=== PATIENT | female | born 1990 | race Caucasian/White ===

== ENCOUNTER → 2022-03-08 09:26 | Outpatient (BNVA) | payer MEDICAID, SELFPAY | PROVIDERS: Family Provider Family Medicine; PCP Family Medicine; Visit Provider Internal Medicine | DX: M25.50 Pain in unspecified joint (principal); M54.2 Cervicalgia; R93.7 Abnormal findings on diagnostic imaging of other parts of musculoskeletal system; Z11.59 Encounter for screening for other viral diseases; Z11.1 Encounter for screening for respiratory tuberculosis | CPT/HCPCS: 36415; 72072; 72100; 73120; 80053; 85025; 86140; 86200; 86431; 86480; 86704; 86803; 86812; 87340; 99203; 99204 ==

== ENCOUNTER → 2022-06-21 10:49 | Outpatient (BNVA) | payer MEDICAID, SELFPAY | PROVIDERS: Family Provider Family Medicine; Visit Provider Internal Medicine | DX: M25.50 Pain in unspecified joint (principal); M54.2 Cervicalgia; K58.9 Irritable bowel syndrome, unspecified | CPT/HCPCS: 84439; 84443; 84480; 99214 ==

== ENCOUNTER 2022-08-01 12:02 | Outpatient (CLI) | payer MEDICAID, SELFPAY ==
--- NOTE | 2022-08-01 11:45 | MR_ITS ---
WS: [id number] MRI CERVICAL SPINE NONCONTRAST HISTORY: M54.2 - Cervicalgia COMPARISON: None available. Technique: Multiplanar, multisequence noncontrast imaging of the cervical spine. Moderate increase in the cervical lordosis. Signal within the cervical cord is normal. Visualized posterior fossa is unremarkable. Craniocervical junction, C1 and C2 relationship, odontoid process and soft tissues are normal. C2-C3: Normal. C3-C4: Normal. C4-C5: Normal. C5-C6: Normal. C6-C7: Normal. C7-T1: Normal. Paraspinal soft tissue are normal. MR/MR cervical spin wo con* [id number] IMPRESSION: 1. Moderate increase in the cervical lordosis. 2. No significant cervical stenosis. Normal cord signal.
== END 2022-08-01 12:03 | disposition home or self-care (01) ==
LOC: RAD 12:05
PROVIDERS: Family Provider Family Medicine; Visit Provider Internal Medicine
DX: M54.2 Cervicalgia (principal)
CPT/HCPCS: 72141

== ENCOUNTER → 2022-10-03 12:49 | Outpatient (BNVA) | payer MEDICAID, SELFPAY | PROVIDERS: Family Provider Family Medicine; Visit Provider Internal Medicine | DX: M25.50 Pain in unspecified joint (principal); M54.2 Cervicalgia | CPT/HCPCS: 36415; 80053; 85025; 85651; 86140; 99213 ==

== ENCOUNTER → 2022-10-25 09:17 | Outpatient (BNVA) | payer MEDICAID, SELFPAY | PROVIDERS: Family Provider Family Medicine; Visit Provider Anesthesiology Pain Medicine | DX: M54.2 Cervicalgia (principal) | CPT/HCPCS: 99204 ==

== ENCOUNTER 2023-01-15 01:01 | Emergency (ER) | payer MEDICAID, SELFPAY ==
[2023-01-15 01:07] VITALS: BMI 20.5
[2023-01-15 01:09] VITALS: BP 112/60; PULSE 53; RESP 16; TEMP 37.2; O2SAT 98
--- NOTE | 2023-01-15 01:15 | W.ED.EAR ---
Documented by User: RAMANDEEP Perez 01/15/23 02:28 HPI - Ear Problem General: Chief complaint: Ear Stated complaint: Bug In Ear Time Seen by Provider: 01/15/23 01:08 History of Present Illness: 32-year-old female comes in today for complaints of insect in her right ear canal. Patient reports about an hour ago she felt an insect going to her ear. Since then she has had discomfort to the right ear and a crawling sensation in the ear canal. Patient appears nontoxic. Patient appears in mild pain. Associated symptoms: Denies fever(s) Review of Systems Const: Denies: fever(s) ENMT: Reports: other (Bug in ear canal) Card: Denies: chest pain Resp: Denies: dyspnea GI: Denies: vomiting Skin/Breast: Denies: rash PFSH ED PFSH: Medical History IBS (irritable bowel syndrome) Family History Other Arthritis CAD (coronary artery disease) Chronic kidney disease (CKD) Diabetes Denies family history of Dementia Cancer Stroke Social History Smoking and tobacco status: never smoked Alcohol intake: never Substance/Drug Use: never Lives independently: Yes Household members: children and other Details: father Marital status: Legally Female Reproductive History: Date of last menstrual period: 12/17/22 Physical Exam Const: COMMON NORMALS: patient oriented x3 HENMT: COMMON NORMALS: normocephalic HEAD & SCALP: normocephalic EXTERNAL AUDITORY CANAL: other (Thorax of bug) THROAT: posterior oropharynx normal Neck/C-Spine: COMMON NORMALS: full ROM Resp: COMMON NORMALS: normal respiratory effort Cardio: COMMON NORMALS: regular rate and regular rhythm RATE: regular rate RHYTHM: regular rhythm Extremity: COMMON NORMALS: normal to inspection Neuro: COMMON NORMALS: patient oriented x3 Skin: COMMON NORMALS: turgor normal GENERAL SKIN EXAM: turgor normal Procedures FB Removal Ear Location: ear canal (R) Foreign Body Suspected: organic matter (Insect) TM intact pre-procedure: yes If Insect Suspected: ear canal instilled with Lidocaine Foreign Body Removed: yes Foreign Body Removal Technique: instrumentation Tympanic Membrane Intact Post Procedure: Yes Patient Tolerated Procedure: well Complications: pain Additional Comments: Dr. Montenegro used a fiberoptic camera and forceps in order to remove the remainder of the insect after irrigation and suction failed. Course Vital Signs: Vital signs: Vital Signs Temperature 98.9 F 01/15/23 01:09 Pulse Rate 55 L 01/15/23 02:40 Respiratory Rate 14 01/15/23 02:40 Blood Pressure 110/65 01/15/23 02:40 Pulse Oximetry 98 01/15/23 02:40 Oxygen Delivery Me thod Room Air 01/15/23 01:09 [facility] - Ear Medical Decision Making Patient comes in today for a insect to the right ear canal. Patient reported noticing the movement of the insect in her ear about 1 hour ago. On exam we note a mejia like insect in the ear canal. Differential diagnosis includes foreign body ear canal, perforation foreign body, otitis externa. Dr Montenegrowas able to remove the insect with use of forceps and fiberoptic camera after a failed attempt with irrigation and instrumentation. Tympanic membrane remained intact after removal of insect. Patient tolerated well. Patient will be covered for postprocedure infection of Cortisporin otic drops. Patient reported understanding of care plan and need for follow-up or return to the ER. Discharge Plan Discharge Patient Disposition: Home Clinical Impression: Foreign body in right ear Condition: Stable Prescriptions: No Action Rinvoq 15 mg tablet extended release 24 hr 15 mg PO DAILY Qty: 30 5RF tizanidine 4 mg tablet 4 mg PO BID PRN (Reason: muscle spasticity) Qty: 60 0RF duloxetine [Cymbalta] 30 mg capsule,delayed release(DR/EC) 30 mg PO DAILY Qty: 30 0RF Discharge Orders: Discharge ED (Routine); Ordered 01/15/23 Ordered By: Cj Reyes Discharge Diet: Usual diet Discharge Activity: Increase activity as tolerated Patient Instructions: Ear Foreign Body (ED) Activity Restrictions/Additional Instructions: Use antibiotic eardrops to the right ear 2 drops to the ear 4 times a day for the next 5 days. Follow-up with primary care as needed. Return to ED for new concerns. Coding Level of Care Code ED Glass Cut Off Tender for Chg Fwd Documented by User: Rush Montenegro MD 01/25/23 09:53 HPI - Ear Problem General: Chief complaint: Ear Stated complaint: Bug In Ear Time Seen by Provider: 01/15/23 01:08 [facility] ED PFSH: Medical History IBS (irritable bowel syndrome) Family History Other Arthritis CAD (coronary artery disease) Chronic kidney disease (CKD) Diabetes Denies family history of Dementia Cancer Stroke Social History Smoking and tobacco status: never smoked Alcohol intake: never Substance/Drug Use: never Lives independently: Yes Household members: children and other Details: father Marital status: Legally Course Vital Signs: Vital signs: Vital Signs Temperature 98.9 F 01/15/23 01:09 Pulse Rate 55 L 01/15/23 02:40 Respiratory Rate 14 01/15/23 02:40 Blood Pressure 110/65 01/15/23 02:40 Pulse Oximetry 98 01/15/23 02:40 Oxygen Delivery Me thod Room Air 01/15/23 01:09 [facility] - Ear Medical Decision Making Patient comes in today for a insect to the right ear canal. Patient reported noticing the movement of the insect in her ear about 1 hour ago. On exam we note a mejia like insect in the ear canal. Differential diagnosis includes foreign body ear canal, perforation foreign body, otitis externa. Dr Montenegrowatrent able to remove the insect with use of forceps and fiberoptic camera after a failed attempt with irrigation and instrumentation. Tympanic membrane remained intact after removal of insect. Patient tolerated well. Patient will be covered for postprocedure infection of Cortisporin otic drops. Patient reported understanding of care plan and need for follow-up or return to the ER. I assisted RAMANDEEP Leal with patient care. I reviewed documentation Rush Montenegro MD Emergency Medicine Discharge Plan Discharge Patient Disposition: Home Clinical Impression: Foreign body in right ear Condition: Stable Prescriptions: No Action Rinvoq 15 mg tablet extended release 24 hr 15 mg PO DAILY Qty: 30 5RF tizanidine 4 mg tablet 4 mg PO BID PRN (Reason: muscle spasticity) Qty: 60 0RF duloxetine [Cymbalta] 30 mg capsule,delayed release(DR/EC) 30 mg PO DAILY Qty: 30 0RF Discharge Orders: Discharge ED (Routine); Ordered 01/15/23 Ordered By: Cj Reyes Discharge Diet: Usual diet Discharge Activity: Increase activity as tolerated Patient Instructions: Ear Foreign Body (ED) Activity Restrictions/Additional Instructions: Use antibiotic eardrops to the right ear 2 drops to the ear 4 times a day for the next 5 days. Follow-up with primary care as needed. Return to ED for new concerns. Coding Level of Care Code ED Glass Cut Off Tender for Latoya Gallegos
[2023-01-15] MEDS: carbamide peroxide Otic 15 mL Btl 5 DROP EAR-RIGHT (01:37)
[2023-01-15] MEDS: neomycin-poly-hydrocort Otic Susp 10 mL Btl 4 DROP EAR-RIGHT (02:34)
[2023-01-15 02:40] VITALS: BP 110/65; PULSE 55; RESP 14; O2SAT 98
--- NOTE | 2023-01-18 13:39 | DCPLANNER ---
automotive sales manager called patient due to no primary care physician - patient declines at this time.
== END 2023-01-15 02:42 | disposition home or self-care (01) ==
PROVIDERS: Emergency Provider Nurse Practitioner Family
DX: T16.1XXA Foreign body in right ear, initial encounter (principal); X58.XXXA Exposure to other specified factors, initial encounter
CPT/HCPCS: 69200; 99283

== ENCOUNTER → 2023-01-21 13:46 | Outpatient (BNVA) | payer MEDICAID, SELFPAY | PROVIDERS: Visit Provider Internal Medicine | DX: M25.50 Pain in unspecified joint (principal); M54.2 Cervicalgia | CPT/HCPCS: 36415; 80053; 83735; 84443; 85025; 99213 ==

== ENCOUNTER → 2023-02-05 11:17 | Outpatient (BNVA) | payer MEDICAID, SELFPAY | PROVIDERS: Visit Provider Anesthesiology Pain Medicine | DX: M54.16 Radiculopathy, lumbar region (principal); M54.2 Cervicalgia | CPT/HCPCS: 99214 ==

== ENCOUNTER → 2023-04-02 08:40 | Outpatient (BNVA) | payer MEDICAID, SELFPAY | PROVIDERS: Visit Provider Anesthesiology Pain Medicine | DX: M79.18 Myalgia, other site (principal); M54.2 Cervicalgia; M06.9 Rheumatoid arthritis, unspecified; Z79.899 Other long term (current) drug therapy | CPT/HCPCS: 20553; 36415; 80053; 83735; 85025; 85651; 86140; 99213; 99214; J1030; J3490 ==

== ENCOUNTER 2023-04-26 13:01 | Outpatient (CLI) | payer MEDICAID, SELFPAY ==
[2023-04-26 13:53] LABS: Ferritin 77 ng/mL (15-150)
[2023-04-30 20:41] LABS: Quantiferon Nil 0.02 IU/mL; Quantiferon Plus TB2 0.02 IU/mL; Quantiferon TB Gold NEGATIVE (NEGATIVE)
== END 2023-04-26 13:02 | disposition home or self-care (01) ==
PROVIDERS: Visit Provider Internal Medicine
DX: M06.9 Rheumatoid arthritis, unspecified (principal); M25.50 Pain in unspecified joint; Z79.899 Other long term (current) drug therapy
CPT/HCPCS: 36415; 82728; 86480

== ENCOUNTER → 2023-05-30 09:03 | Outpatient (BNVA) | payer MEDICAID, SELFPAY | PROVIDERS: Visit Provider Anesthesiology Pain Medicine | DX: M54.2 Cervicalgia | CPT/HCPCS: 99214 ==

== ENCOUNTER → 2023-07-17 13:51 | Outpatient (BNVA) | payer MEDICAID, SELFPAY | PROVIDERS: Visit Provider Internal Medicine | DX: M06.9 Rheumatoid arthritis, unspecified (principal); M25.50 Pain in unspecified joint; M54.2 Cervicalgia | CPT/HCPCS: 36415; 72100; 73522; 80053; 85025; 85651; 86140; 99214 ==

== ENCOUNTER → 2023-08-29 09:48 | Outpatient (BNVA) | payer MEDICAID, SELFPAY | PROVIDERS: Visit Provider Anesthesiology Pain Medicine | DX: M54.2 Cervicalgia (principal); M54.9 Dorsalgia, unspecified; M41.9 Scoliosis, unspecified | CPT/HCPCS: 99214 ==

== ENCOUNTER → 2023-10-08 10:02 | Outpatient (BNVA) | payer MEDICAID, SELFPAY | PROVIDERS: Visit Provider Anesthesiology Pain Medicine | DX: M54.2 Cervicalgia (principal); M54.9 Dorsalgia, unspecified; G89.29 Other chronic pain | CPT/HCPCS: 99214 ==

== ENCOUNTER → 2024-02-17 13:54 | Outpatient (BNVA) | payer MEDICAID, SELFPAY | PROVIDERS: Visit Provider Internal Medicine Rheumatology | DX: M06.9 Rheumatoid arthritis, unspecified (principal); M08.80 Other juvenile arthritis, unspecified site; K02.9 Dental caries, unspecified; M21.222 Flexion deformity, left elbow; M51.34 Other intervertebral disc degeneration, thoracic region; M50.30 Other cervical disc degeneration, unspecified cervical region; M41.9 Scoliosis, unspecified; Z79.899 Other long term (current) drug therapy; Z71.85 Encounter for immunization safety counseling; F17.210 Nicotine dependence, cigarettes, uncomplicated | CPT/HCPCS: 80076; 82565; 85025; 85651; 86140; 86480; 86704; 86803; 87340; 99215 ==

== ENCOUNTER 2024-03-20 21:03 | Emergency (ER) | payer MEDICAID, SELFPAY ==
[2024-03-20 21:23] VITALS: BP 125/77; PULSE 57; RESP 16; TEMP 36.5; O2SAT 98
--- NOTE | 2024-03-20 22:36 | CTR_ITS ---
PROCEDURE INFORMATION: Exam: CT Head Without Contrast Exam date and time: 03/20/2024 10:41 PM Age: 33 years old Clinical indication: Pain; Headache; Patient HX: C/O migraine; Additional info: Migraine, feels different, face pain TECHNIQUE: Imaging protocol: Computed tomography of the head without contrast. Radiation optimization: All CT scans at this facility use at least one of these dose optimization techniques: automated exposure control; mA and/or kV adjustment per patient size (includes targeted exams where dose is matched to clinical indication); or iterative reconstruction. COMPARISON: MR cervical spin wo con* [id number] 08/01/2022 12:25 PM RADIATION DOSE METRICS: Total DLP (mGy-cm): 884.62 FINDINGS: Brain: Normal. No hemorrhage. Unremarkable white matter. No mass effect. Cerebral ventricles: No ventriculomegaly. Paranasal sinuses: Visualized sinuses are unremarkable. No fluid levels. Mastoid air cells: Visualized mastoid air cells are well aerated. Bones: Unremarkable. No acute fracture. Soft tissues: Unremarkable. CT/CT head wo con* [id number] IMPRESSION: No acute intracranial abnormality.
--- NOTE | 2024-03-20 22:38 | W.ED.HA ---
HPI - Headache General: Chief Complaint: Headache Stated Complaint: Mouth pain Time Seen by Provider: 03/20/24 22:32 Source: patient Mode of arrival: ambulatory Limitations: no limitations History of Present Illness: Patient is a 33-year-old female presenting to the emergency department planing of headache onset yesterday. Patient reports history of tension headaches, states this feels different and is in her face. She states it is in bilateral ears and she is also having dental pain. No visual changes, unilateral numbness, weakness, or tingling, or any other concerning symptoms reported this time. No chest pain or shortness of breath. States that the pain has been constant. No recent trauma. Onset was gradual, location is diffuse. States it is severe. No specific alleviating or exacerbating factors noted at this time. She has not taken anything for her pain. MD elicited complaint: headache Pertinent past history: migraines Onset (ago): day(s) Onset description: gradually Location: diffuse Severity: severe Exacerbating factors: none Relieving factors: nothing Associated symptoms: Deny chest pain, fever(s), lightheadedness, nausea, rash or vomiting Review of Systems General: Reports: 10 or more systems reviewed and unremarkable except in HPI and below Const: Denies: fever(s), chills or fatigue Eyes: Denies: change in vision ENMT: Reports: sinus pain; Denies: throat pain, ear or mastoid pain or nasal discharge Card: Denies: chest pain, palpitations, swelling of feet/ankles or lightheadedness Resp: Denies: dyspnea, productive cough or wheezing GI: Denies: abdominal pain, nausea, vomiting, diarrhea or constipation : Denies: flank pain, difficulty voiding, dysuria or urinary frequency Musc: Denies: neck pain, back pain or joint pain Skin/Breast: Denies: rash Neuro: Reports: headache(s); Denies: numbness in extremities or weakness in extremities PFSH ED PFSH: Medical History Immunization counseling Dental caries Anxiety Depression Chronic migraine Thyroid disease High risk medication use PAULETTE (juvenile idiopathic arthritis) Rheumatoid arthritis IBS (irritable bowel syndrome) Surgical History History of elbow surgery History of cholecystectomy Family History Other Arthritis CAD (coronary artery disease) Chronic kidney disease (CKD) Diabetes Denies family history of Dementia Cancer Stroke Social History Smoking and tobacco/nicotine status: current every day tobacco/nicotine user cigarettes Packs smoked per day: 0.5 Years cigarettes smoked: 10 Alcohol intake: never Substance/Drug Use: never Lives independently: Yes Household members: children and other Details: father Marital status: Legally Physical Exam Const: COMMON NORMALS: no acute distress, patient oriented x3 and no limitations GENERAL APPEARANCE: cooperative, comfortable and well developed ORIENTATION/CONSCIOUSNESS: Yes awake, Yes oriented to person, Yes oriented to place and Yes oriented to time HENMT: COMMON NORMALS: normocephalic, atraumatic, hearing grossly normal bilaterally, external ears normal and EAC's normal HEAD & SCALP: normocephalic and atraumatic FACE & SINUS: normal facial exam EXTERNAL EAR: Yes external ears normal EXTERNAL AUDITORY CANAL: EAC's normal TYMPANIC MEMBRANE: TM abnormal TM laterality: bilateral bulging TEETH & GINGIVA: Yes multiple restorations and Yes poor dentition Eye: COMMON NORMALS: Equal, round and reactive pupils present, EOMs intact bilaterally and conjunctivae normal CONJUNCTIVA: Yes conjunctivae normal PUPIL: Yes Equal, round and reactive pupils present Neck/C-Spine: COMMON NORMALS: full ROM, supple and no JVD Resp: COMMON NORMALS: normal respiratory effort, No retractions, No use of accessory muscles and clear to auscultation bilaterally AUSCULTATION: clear to auscultation bilaterally Cardio: COMMON NORMALS: no JVD, regular rate, regular rhythm, No clicks present (Cardio), No murmurs present (Cardio) and No rub (Cardio) RATE: regular rate RHYTHM: regular rhythm Extremity: COMMON NORMALS: normal to inspection, full ROM and capillary refill normal Neuro: COMMON NORMALS: patient oriented x3, CN's II-XII intact bilaterally, moves all extremities, no focal motor deficits and no sensory deficits noted SENSORIUM/ORIENTATION: Yes oriented to person, Yes oriented to place and Yes oriented to time Psych: COMMON NORMALS: mental status grossly normal and Normal thought process present THOUGHT PROCESS: Normal thought process present Skin: COMMON NORMALS: no rashes or lesions noted GENERAL SKIN EXAM: no rashes or lesions noted Course Vital Signs: Vital signs: Vital Signs Temperature 97.7 F 03/20/24 21:23 Pulse Rate 57 L 03/20/24 21:23 Respiratory Rate 16 03/20/24 21:23 Blood Pressure 125/77 03/20/24 21:23 Pulse Oximetry 98 03/20/24 21:23 MDM - Headache Medical Decision Making Patient presented with 1 day of headache as well as facial pain, stating that this pain felt different from her history of tension type headaches. She does have poor dentition on examination, and it is likely that some dental pain could be contributing to this. Also notes some pressure in her ears, and upon evaluation did find her ears to be bulging, potential fluid buildup. Vitals were normal on arrival and rest of her examination was unremarkable including a normal neurological workup. CT head obtained to rule out any acute abnormalities, this was negative. She does note improvement after receiving a migraine cocktail, and I do believe that her pain related to a combination of tension type headache, potential eustachian tube dysfunction, and potentially some dental pain. She has Flonase at home, and I did instruct her to follow-up with dentist next week for evaluation here. She is on Topamax and does take ibuprofen, she is encouraged to continue taking these and will return with any new or worsening symptoms. Lab Data Radiology Impressions Head CT 03/20/24 22:36 IMPRESSION: No acute intracranial abnormality. All radiology interpretation(s) finalized by discharge Discharge Plan Discharge Patient Disposition: Home Clinical Impression: Headache Qualifiers: Headache type: tension-type Headache chronicity pattern: acute headache Intractability: intractable Qualified Code(s): G44.201 - Tension-type headache, unspecified, intractable Condition: Stable Prescriptions: No Action loperamide 2 mg capsule See Rx Instructions PO .COMPLEX Rx Instructions: 1 capsule po q 3 hrs PROMETHAZINE 12.5 mg PO .COMPLEX Rx Instructions: 12.5 mg TAB PO Q 8HRS OKRA PEPSIN E3 PO OX BILE 500 mg PO topiramate 50 mg tablet 50 mg PO BID 30 Days Qty: 60 0RF tizanidine 4 mg tablet 4 mg PO BID PRN (Reason: muscle spasticity) Qty: 60 0RF IBUPROFEN 600 mg PO PRN Rx Instructions: 1 TAB Q 8 HRS OMEPRAZOLE 40 mg PO DAILY prednisone 20 mg tablet See Rx Instructions PO .COMPLEX PRN (Reason: joint pain flare) Qty: 30 1RF Rx Instructions: take 1 or 2 tab daily for up to 7 days as needed for arthritis flare PO PRN; Xeljanz 5 mg tablet 5 mg PO BID Qty: 60 5RF Discharge Orders: Discharge ED (Routine); Ordered 03/20/24 Ordered By: Cosme Rice Discharge Diet: Usual diet Discharge Activity: Increase activity as tolerated Patient Instructions: Tension Headache (ED) Activity Restrictions/Additional Instructions: Plenty of fluids. Ibuprofen for pain and continue your other medications. Range of motion exercises of your neck as tolerated. Follow-up with dentist as discussed. You may also follow-up with primary care as needed and return with any new or worsening symptoms. Coding Level of Care Code ED Training Generalist for Latoya Gallegos
[2024-03-20] MEDS: sodium chloride 0.9% 1,000 ML 999 ML IV (23:12)
[2024-03-20] MEDS: dexamethasone 10 mg/mL INJ IVP (23:13)
[2024-03-20] MEDS: metoclopramide 5 mg/mL SDV 2 mL 10 MG IVP (23:13)
[2024-03-20] MEDS: ketorolac 60 mg/2 mL INJ 30 MG IVP (23:13)
[2024-03-20] MEDS: diphenhydrAMINE 50 mg/mL SDV 1mL IVP (23:14)
[2024-03-20 23:30] VITALS: BP 112/63; PULSE 56; RESP 16; O2SAT 100
[2024-03-21 00:34] VITALS: BP 98/66; PULSE 84; RESP 14; O2SAT 100
== END 2024-03-21 00:39 | disposition home or self-care (01) ==
PROVIDERS: Emergency Provider Physician Assistant
DX: G44.201 Tension-type headache, unspecified, intractable (principal); F17.210 Nicotine dependence, cigarettes, uncomplicated
CPT/HCPCS: 70450; 96374; 96375; 99285; J1100; J1200; J1885; J2765; J7030

== ENCOUNTER → 2024-07-06 12:50 | Outpatient (BNVA) | payer MEDICAID, SELFPAY | PROVIDERS: Visit Provider Internal Medicine Rheumatology | DX: Z79.899 Other long term (current) drug therapy (principal); M08.80 Other juvenile arthritis, unspecified site; M06.9 Rheumatoid arthritis, unspecified; K02.9 Dental caries, unspecified; Z71.85 Encounter for immunization safety counseling; G89.29 Other chronic pain; M54.9 Dorsalgia, unspecified; M41.9 Scoliosis, unspecified; M51.34 Other intervertebral disc degeneration, thoracic region; M50.30 Other cervical disc degeneration, unspecified cervical region | CPT/HCPCS: 36415; 80076; 82565; 85025; 85651; 86140; 99214 ==

== ENCOUNTER → 2024-09-16 08:08 | Outpatient (BNVA) | payer MEDICAID, SELFPAY | PROVIDERS: Visit Provider Emergency Medicine | DX: J02.9 Acute pharyngitis, unspecified (principal) | CPT/HCPCS: 87071; 87880 ==

== ENCOUNTER 2024-11-09 07:52 | Emergency (ER) | payer MEDICAID, SELFPAY ==
[2024-11-09 07:58] VITALS: BP 103/69; PULSE 86; RESP 18; TEMP 36.4; O2SAT 98
--- NOTE | 2024-11-09 08:03 | ED_ITS ---
HPI - Abdominal Pain 2 General: Chief Complaint: Abdominal Pain Stated Complaint: abd pain, no bm, nausea Time Seen by Provider: 11/09/24 07:58 History of Present Illness: 34-year-old female presents emergency ro om with complaint of constipation for the last 3 to 4 days. She has tried several [id number] medications with no relief. She has periumbilical abdominal pain with no fever sweats chills no dysuria urgency or frequency denies hematochezia or melena 24 hours after the onset of symptoms she began to have some nausea with occasional vomiting which has worsened since then. Previously patient has had a cholecystectomy no other abdominal surgeries. Associated Symptoms: Reports constipation and nausea; Denies chills, dysuria and fever(s) Related Data Home Medications ?Medication ?Instructions ?Recorded ?Confirmed omeprazole 40 mg capsule,delayed 40 mg PO DAILY PRN Ac id Reflux 11/09/24 11/09/24 release Previous Rx's ?Medication ?Instructions ?Recorded albuterol sulfate 90 mcg/actuation 2 inh inhalation Q4 H PRN shortness 04/30/24 aerosol inhaler of breath or wheezing #6.7 g clau upadacitinib 15 mg tablet,extended 15 mg PO DAILY #30 tabs 07/06/24 release 24 hr (Rinvoq) ciprofloxacin HCl 250 mg tablet 250 mg PO BID #14 tabs 11/09/24 (Cipro) hydrocodone 5 mg-acetaminophen 325 1 tab PO Q6H PRN pa in #20 tabs 11/09/24 mg tablet promethazine 25 mg tablet 25 mg PO Q6H PRN nausea and 11/09/24 vomiting #20 tabs tamsulosin 0.4 mg capsule 0.4 mg PO DAILY #14 caps Allergies Allergy/AdvReac Type Severity Reaction Status Date / Time No Known Allergies Allergy Verified 09/16/24 08:05 Review of Systems 2 Const: Denies: fever(s) or chills Card: Denies: chest pain Resp: Denies: dyspnea GI: Reports: abdominal pain, nausea and constipation : Denies: dysuria, urinary frequency or urinary urgency Musc: Denies: neck pain or back pain Skin/Breast: Denies: rash PFSH ED 2 PFSH: Medical History (Updated 11/09/24 @ 10:36 by Telly Gomez DO) Screening for cervical cancer Anxiety Depression Chronic migraine Thyroid disease High risk medication use PAULETTE (juvenile idiopathic arthritis) Rheumatoid arthritis IBS (irritable bowel syndrome) Surgical History History of elbow surgery History of cholecystectomy Family History Father Hypertension Stroke Diabetes Other Arthritis CAD (coronary artery disease) Chronic kidney disease (CKD) Denies family history of Dementia Cancer Social History Smoking and tobacco/nicotine status: current every day tobacco/nicotine user cigarettes Packs smoked per day: 0.5 Years cigarettes smoked: 10 Second hand smoke exposure: No Alcohol intake: never Substance/Drug Use: never Adopted: No Caregiver/support person: No Lives independently: Yes Household members: children and other Details: father Marital status: Legally Physical Exam 2 Const: COMMON NORMALS: no acute distress GENERAL APPEARANCE: cooperative and comfortable ORIENTATION/CONSCIOUSNESS: Yes awake, Yes oriented to person, Yes oriented to place and Yes oriented to time HENMT: COMMON NORMALS: normocephalic, atraumatic and hearing grossly normal bilaterally HEAD & SCALP: normocephalic and atraumatic Resp: COMMON NORMALS: normal respiratory effort, No retractions, No use of accessory muscles and clear to auscultation bilaterally AUSCULTATION: clear to auscultation bilaterally Cardio: COMMON NORMALS: regular rate, regular rhythm and No murmurs present (Cardio) RATE: regular rate RHYTHM: regular rhythm GI: COMMON NORMALS: Soft to palpation and No hepatosplenomegaly present A USCULTATION: Yes normoactive bowel sounds PALPATION: Yes Soft to palpation, No Tenderness to palpation present (GI), No Guarding due to palpation present (GI) and Yes No hepatosplenomegaly present Extremity: COMMON NORMALS: normal to inspection, capillary refill normal, no clubbing, cyanosis or edema, no calf tenderness and no pedal edema Neuro: SENSORIUM/ORIENTATION: Yes oriented to person, Yes oriented to place and Yes oriented to time Skin: COMMON NORMALS: no rashes or lesions noted GENERAL SKIN EXAM: no rashes or lesions noted Course 2 Vital Signs: Vital signs: Vital Signs Temperature 97.5 F L 11/09/24 07:58 Pulse Rate 75 11/09/24 11:10 Respiratory Rate 18 11/09/24 10:00 Blood Pressure 107/78 11/09/24 11:10 Pulse Oximetry 100 11/09/24 11:10 Oxygen Delivery Me thod Room Air 11/09/24 07:58 MDM - Abdominal Pain Medical Decision Making CT shows a right nephrolithiasis 4 mm in transverse diameter longitudinal diameter oriented with the ureter is 10 mm. Pain is well-controlled discharged home on tamsulosin 1 as well as hydrocodone promethazine strain urine and set up for outpatient follow-up with urology return to nearest emergency room if has uncontrolled pain Medical Records I reviewed the patient's medical records. Lab Data I reviewed the patient's lab results. 11/09/24 08:16 11/09/24 08:16 Labs/Radiology: Radiology Impressions Abdomen/Pelvis CT 11/09/24 08:30 IMPRESSION: 1. Moderate LEFT hydronephrosis with obstructing calculus in the proximal ureter just distal to the UPJ. Calculus measures 4 mm in transverse dimension and 10 mm craniocaudal. 2. Hydronephrosis in the RIGHT kidney. 3. Prior cholecystectomy clips. 4. Fatty liver. 5. Severe osteoarthritis RIGHT greater than LEFT hips advanced for a patient this age with subchondral cystic change in the RIGHT femoral head acetabulum and LEFT acetabulum. Suspected early avascular necrosis RIGHT femoral head. Laboratory Results WBC 9.14 10^3/uL (3.29-11.43) 11/09/24 08:16 RBC 5.24 10^6/uL (3.85-5.65) 11/09/24 08:16 Hgb 16.60 g/dL (11.27-16.99) 11/09/24 08:16 Hct 48.5 % (36-47) H 11/09/24 08:16 MCV 92.6 fl (85-98) 11/09/24 08:16 MCH 31.7 pg (27-33) 11/09/24 08:16 MCHC 34.2 g/dL (30-55) 11/09/24 08:16 RDW 12.0 % (12.1-15.1) L 11/09/24 08:16 Plt Count 174 10^3/cmm (157-399) 11/09/24 08:16 MPV 13.3 fL (7.4-10.4) H 11/09/24 08:16 Neut % (Auto) 73.1 % 11/09/24 08:16 Lymph % (Auto) 17.1 % 11/09/24 08:16 [place] % (Auto) 8.1 % 11/09/24 08:16 Eos % (Auto) 1.0 % 11/09/24 08:16 Baso % (Auto) 0.4 % 11/09/24 08:16 Neut # (Auto) 6.68 10^3/uL (1.8-7.7) 11/09/24 08:16 Lymph # (Auto) 1.6 10^3/uL (0.8-4.8) 11/09/24 08:16 [place] # (Auto) 0.7 10^3/uL (0.2-0.9) 11/09/24 08:16 Eos # (Auto) 0.1 10^3/uL (0.0-0.8) 11/09/24 08:16 Baso # (Auto) 0.0 10^3/uL (0.0-0.1) 11/09/24 08:16 Nucleated RBC % (auto) 0 % 11/09/24 08:16 Nucleated RBCs # 0.0 /100WBC 11/09/24 08:16 Sodium 136 mmol/L (136-145) 11/09/24 08:16 Potassium 3.0 mmol/L (3.5-5.1) L 11/09/24 08:16 Chloride 92 mmol/L (98-107) L 11/09/24 08:16 Carbon Dioxide 27 mmol/L (22-29) 11/09/24 08:16 Anion Gap 20.0 (5-19) H 11/09/24 08:16 BUN 10 mg/dL (6-20) 11/09/24 08:16 Creatinine 0.9 mg/dL (0.5-0.9) 11/09/24 08:16 GFR Calculation 71.7 mL/min (90-130) L 11/09/24 08:16 Glucose 126 mg/dL (65-115) H 11/09/24 08:16 Calculated Osmolality 283 mOsm/kg (285-295) L 11/09/24 08:16 Calcium 10.0 mg/dL (8.5-10.5) 11/09/24 08:16 Total Bilirubin 0.8 mg/dL (0.15-1.2) 11/09/24 08:16 AST 17 U/L (0-32) 11/09/24 08:16 ALT 13 U/L (0-33) 11/09/24 08:16 Alkaline Phosphatase 112 U/L (35-105) H 11/09/24 08:16 Total Protein 8.3 g/dL (6.6-8.7) 11/09/24 08:16 Albumin 4.9 g/dL (3.5-5.2) 11/09/24 08:16 Globulin 3.4 g/dL (1.3-4.6) 11/09/24 08:16 HCG, Qual Negative (Negative) 11/09/24 08:16 Urine Color Yellow (Yellow) 11/09/24 08:10 Urine Appearance Slightly cloudy (CLEAR) 11/09/24 08:10 Urine pH TNP 11/09/24 08:10 Ur Specific Clyde TNP 11/09/24 08:10 Urine Protein TNP 11/09/24 08:10 Urine Glucose (UA) TNP 11/09/24 08:10 Urine Ketones TNP 11/09/24 08:10 Urine Blood TNP 11/09/24 08:10 Urine Nitrate TNP 11/09/24 08:10 Urine Bilirubin TNP 11/09/24 08:10 Urine Urobilinogen TNP 11/09/24 08:10 Ur Leukocyte Esterase TNP 11/09/24 08:10 Urine RBC 21-50 /hpf (0-2) H 11/09/24 08:10 Urine WBC 10-15 /hpf (0-5) H 11/09/24 08:10 Ur Squamous Epith Cells 0-4 /hpf (0-5) H 11/09/24 08:10 Amorphous Sediment Not Reportable 11/09/24 08:10 Urine Bacteria 2+ /hpf (NONE) H 11/09/24 08:10 All radiology interpretation(s) finalized by discharge Discharge Plan Discharge Patient Disposition: Home Clinical Impression: Calculus of kidney Condition: Stable Prescriptions: New hydrocodone-acetaminophen 5-325 mg tablet 1 tab PO Q6H PRN (Reason: pain) Qty: 20 0RF promethazine 25 mg tablet 25 mg PO Q6H PRN (Reason: nausea and vomiting) Qty: 20 0RF tamsulosin 0.4 mg capsule 0.4 mg PO DAILY Qty: 14 0RF ciprofloxacin HCl [Cipro] 250 mg tablet 250 mg PO BID Qty: 14 0RF No Action Rinvoq 15 mg tablet extended release 24 hr 15 mg PO DAILY Qty: 30 5RF albuterol sulfate 90 mcg/actuation HFA aerosol inhaler 2 inh inhalation Q4H PRN (Reason: shortness of breath or wheezing) Qty: 6.7 0RF omeprazole 40 mg Capsule,Delayed Release(Dr/Ec) 40 mg PO DAILY PRN (Reason: Acid Reflux) Discharge Orders: Discharge ED (Routine); Ordered 11/09/24 Ordered By: Telly Gomez Referrals: Oly Freeman NP [Primary Care Provider] - Discharge Diet: Usual diet Discharge Activity: Increase activity as tolerated Patient Instructions: Kidney Stones (ED), How to Strain Your Urine (ED), Opioid Safety, Pain Management Activity Restrictions/Additional Instructions: Thank you for choosing [facility] for your healthcare needs today. It is very important that you follow up as instructed or that you return to the Emergency Department should you have concerns or if your condition changes or worsens in any way. You were seen in the emergency room with complaints of abdominal pain on CT you were found to have a kidney stone in the left ureter. The stone is football shaped but is oriented in a way that it should pass. Recommend straining your urine you are given pain and nausea medications as well as medication to help the stone pass quicker. Case management make arrangements for you to see urologist. If your pain becomes uncontrolled return to the nearest hospital. You are also noted to have a bladder infection or given oral antibiotics for this. Finally an incidental finding of some changes in your hips particularly in the right hip but this should be followed up with your primary care doctor. Print Language: Luxembourger Coding Level of Care Code ED Online Services Manager for Latoya Gallegos
[2024-11-09 08:25] LABS: Basophils % 0.4 %; Eosinophils # 0.1 10^3/uL (0.0-0.8); Hematocrit 48.5 % (36-47); Lymphocytes # 1.6 10^3/uL (0.8-4.8); Lymphocytes % 17.1 %; Mean Corpuscular HGB Conc 34.2 g/dL (30-55); Mean Corpuscular Hemoglobin 31.7 pg (27-33); Mean Corpuscular Volume 92.6 fl (85-98); Mean Platelet Volume 13.3 fL (7.4-10.4); Monocytes # 0.7 10^3/uL (0.2-0.9); Monocytes % 8.1 %; Neutrophils # 6.68 10^3/uL (1.8-7.7); Neutrophils % 73.1 %; Nucleated Red Blood Cells % 0 %; Platelet Count 174 10^3/cmm (157-399); Red Blood Count 5.24 10^6/uL (3.85-5.65); White Blood Count 9.14 10^3/uL (3.29-11.43)
--- NOTE | 2024-11-09 08:30 | CT_ITS ---
WS: [id number] CT ABDOMEN PELVIS TECHNIQUE: Contrast-enhanced CT of the abdomen and pelvis with coronal and sagittal reformatted images. CLINICAL INFORMATION: abd pain COMPARISON: None. DLP: 299.[address] scans at [facility] use at least one of these dose optimization techniques: automated exposure control; mA and/or kV adjustment per patient size (includes targeted exams where dose is matched to clinical indication); or iterative reconstruction. FINDINGS: Diffuse fatty infiltration of the liver. Cholecystectomy clips. Lung bases are well aerated. Small RIGHT renal cyst. Moderate LEFT hydronephrosis. Obstructing calculus LEFT proximal ureter measuring 4 mm in short axis dimension and 10 mm in craniocaudal length. LEFT proximal ureterectasis. Lung bases are well aerated. Celiac and SMA are patent. Adrenal glands are normal. Normal caliber abdominal aorta. Physiologic uterine enhancement. Normal sigmoid colon. Subchondral cystic change in the RIGHT femoral head and LEFT acetabulum with advanced joint space narrowing for a patient this age. Sclerosis LEFT greater than RIGHT sacroiliac joints. CT/CT abdomen pelvis w con* [id number] IMPRESSION: 1. Moderate LEFT hydronephrosis with obstructing calculus in the proximal uret er just distal to the UPJ. Calculus measures 4 mm in transverse dimension and 1 0 mm craniocaudal. 2. Hydronephrosis in the RIGHT kidney. 3. Prior cholecystectomy clips. 4. Fatty liver. 5. Severe osteoarthritis RIGHT greater than LEFT hips advanced for a patient t his age with subchondral cystic change in the RIGHT femoral head acetabulum and LEFT acetabulum. Suspected early avascular necrosis RIGHT femoral head.
[2024-11-09 08:31] LABS: Add Urine Microscopic? YES; UA Manual Slide Review YES; Urine Appearance Slightly Cloudy (CLEAR)
[2024-11-09 08:32] LABS: RBC Urine 21-50 /hpf (0-2); Urine Color Yellow (Yellow)
[2024-11-09 08:33] LABS: Squamous Epithelial Cell Urine 0-4 /hpf (0-5)
[2024-11-09 08:34] LABS: Add Urine Culture? Yes; Bacteria Urine 2+ /hpf
[2024-11-09 08:40] LABS: HCG, Serum Qual Negative (Negative)
[2024-11-09 08:43] LABS: Alanine Aminotransferase 13 U/L (0-33); Albumin Level 4.9 g/dL (3.5-5.2); Alkaline Phosphatase 112 U/L (35-105); Aspartate Amino Transferase 17 U/L (0-32); Blood Urea Nitrogen 10 mg/dL (6-20); Carbon Dioxide 27 mmol/L (22-29); Chloride 92 mmol/L (98-107); Creatinine Clr Calc Pharmacy 70.1506; Globulin 3.4 g/dL (1.3-4.6); Glomerular Filtration Rate 71.7 mL/min (90-130); Glucose 126 mg/dL (65-115); Osmolality Calculated 283 mOsm/kg (285-295); Slide Review Slide Review Perform; Sodium 136 mmol/L (136-145); Total Bilirubin 0.8 mg/dL (0.15-1.2); Total Protein 8.3 g/dL (6.6-8.7)
[2024-11-09] MEDS: sodium chloride 0.9% 1,000 ML 999 ML IV (08:46)
[2024-11-09] MEDS: ondansetron 2 mg/ML SDV 2 mL 4 MG IVP ×2 (08:46→10:00)
[2024-11-09] MEDS: iohexol 350 mg/mL 500 mL Btl (per mL) IV (08:55)
[2024-11-09 09:06] VITALS: BP 111/81; PULSE 77; RESP 15; O2SAT 100
[2024-11-09 10:00] VITALS: RESP 18; O2SAT 100
[2024-11-09] MEDS: morphine 4 mg/mL SDV 1 mL IVP (10:00)
--- NOTE | 2024-11-09 10:02 | PC.NURSE ---
abx delayed d/t needing blood cultures
[2024-11-09] MEDS: cefTRIAXone 1,000 mg SDV 1000 MG IVP (10:37)
[2024-11-09 10:40] VITALS: BP 104/75; PULSE 75; O2SAT 100
[2024-11-09 11:10] VITALS: BP 107/78; PULSE 75; O2SAT 100
--- NOTE | 2024-11-12 19:21 | DCPLANNER ---
Sent to [facility] urology for referral
== END 2024-11-09 11:10 | disposition home or self-care (01) ==
PROVIDERS: Emergency Provider Family Medicine
DX: N20.0 Calculus of kidney (principal); F17.210 Nicotine dependence, cigarettes, uncomplicated
CPT/HCPCS: 36415; 74177; 80053; 81001; 84703; 85025; 87040; 87086; 96374; 96375; 96376; 99285; J0696; J2270; J2405; J7030

== ENCOUNTER → 2025-01-26 12:53 | Outpatient (BNVA) | payer MEDICAID, SELFPAY | PROVIDERS: Visit Provider Emergency Medicine | DX: J02.9 Acute pharyngitis, unspecified (principal) | CPT/HCPCS: 87071; 87880 ==

== ENCOUNTER 2025-03-01 12:41 | Emergency (ER) | payer MEDICAID, SELFPAY ==
[2025-03-01 12:47] VITALS: BP 107/67; PULSE 65; RESP 16; TEMP 36.7; O2SAT 98; BMI 18.3
--- OUTSIDE RECORDS SUMMARY | 2025-03-01 12:49 | XMS_ITS | Clinical Summary ---
Author Organization [facility] Address [address] [place] [address] Phone Care Team Providers Care Roller Shop Supervisor Name Role Phone Lynda Moralez MD Primary Care Provider Allergies No known active allergies Medications gabapentin (NEURONTIN) 300 mg capsule Take 300 mg by mouth 3 times daily. 01/06/2019 Active lipase-protease- amylase DR (Creon) 24,000-76,000-12 0,000 unit capsuleIndicatio ns:Chronic diarrhea,Intermi ttent generalized abdominal pain,Stool fat increased Take 1 Capsule by mouth 4 times daily with meals and at bedtime. 120 Capsule 4 12/01/2020 Active citalopram (CeleXA) 20 mg tablet Take 20 mg by mouth daily. 07/29/2017 Active loperamide (IMODIUM) 2 mg capsule Take 1 Capsule (2 mg) by mouth every 3 hours as needed for Diarrhea/Loo se Stools. 240 Capsule 3 07/29/2023 Active colestipoL (COLESTID) 1 gram tabletIndication s:Chronic diarrhea,Irritab le bowel syndrome with diarrhea Take 2 Tablets (2 Grams) by mouth 2 times daily. 120 Tablet 4 04/09/2024 Active Active Problems Problem Noted Date Diagnosed Date Chronic diarrhea 01/08/2018 Encounters Date Type Department Care Team Description 02/09/2025 External Device Data [facility] ABSTRACTION Provider, Abstract 02/02/2025 External Device Data [facility] ABSTRACTION Provider, Abstract 01/07/2025 External Device Data [facility] ABSTRACTION Provider, Abstract 01/06/2025 External Device Data [facility] ABSTRACTION Provider, Abstract 01/05/2025 External Device Data [facility] ABSTRACTION Provider, Abstract 12/01/2024 External Device Data [facility] ABSTRACTION Provider, Abstract from Last 3 Months Family History Medical History Relation Name Comments Colon Cancer Neg Hx Social History Tobacco Use Types Packs/Day Years Used Date Smoking Tobacco: Former Cigarettes Q uit: 05/03/2021 Smokeless Tobacco: Never Alcohol Use Standard Drinks/Week Comments No 0 (1 standard drink = 0.6 oz pur e alcohol) Comments No Sex and Gender Information Value Date Recorded Sex Assigned at Not on file Legal Sex Female 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 Gender Identity Not on file Sexual Orientation Not on file Last Filed Vital Signs Vital Sign Reading Time Taken Comments Blood Pressure 102/57 10/03/2021 11:09 AM [employer] DRIVER Pulse 54 10/03/2021 11:09 AM [employer]AGON DRIVER Temperature - - Respiratory Rate 20 10/24/2020 12:2 7 PM [employer] DRIVER Oxygen Saturation - - Inhaled Oxygen Concentration - - Weight 50.3 kg (110 lb 12.8 oz) 022 11:09 AM [employer]SE [employer] DRIVER Height 160 cm (5' 3 ) 10/03/2021 11:09 AM H[employer]SE AND WAGON DRIVER Body Mass Index 19.63 10/03/2021 11:09 AM [employer]SE [employer] WAG[employer] DRIVER Plan of Treatment Upcoming Encounters Date Type Department Care Team (Late st Contact Info) Description 04/09/2025 11:00 AM CDT Telephone Check Up [facility] [place] [address] [facility] [address] [place] [address] Olga Jimenez NP [address] [place] [address] 09/03/2025 10:10 AM [employer] DRIVER Office Visit [facility] [address] [place] [address] Gina Westfall PA [address] [place] [address] Health Maintenance Due Date Last Done Comments DTAP/TDAP/TD VACCINES (1 - Tdap) 2009 HEPATITIS B VACCINES (1 of 3 - 19+ 3-dose series) 2009 HPV/Cotest (21-29) 2011 CERVICAL CANCER SCREENING 2020 HPV/Cotest (30-65) 2020 PAP SMEAR 2020 INFLUENZA VACCINE (#1) 2025 HPV VACCINES Aged Out No longer eligi ble based on patient's age to complete this topic Medical Devices Implanted Type Area Case Management Manager Device Identifier Shelf Expiration Date Model / Serial / Lot Capsule Gomez Ph Test [id number] - [id number] Implanted:Qty: 1 on 09/15/2020 by Pablo Martinez DO Other N/A: Esophagus [employer] accounts receivable representative. GIVEN [id number] 01/24/2022 [id number] / / [id number] Description:Unit L, placed a t 30cm [place] Care Teams Roller Shop Supervisor Relationship Specialty Start Date End Date Lynda Moralez MD [address] [place] [id number] PCP - General 10/24/20
--- NOTE | 2025-03-01 13:06 | W.ED.BURNSMK ---
HPI - Burn/Smoke Inhalation General: Chief complaint: Burn/Smoke Inhalation Stated complaint: index finger burn on R hand Time Seen by Provider: 03/01/25 12:56 Source: patient Mode of arrival: ambulatory Limitations: no limitations History of Present Illness: Patient states she was making candy and grapes and burned her right index finger on the hot sugars she does have a burn dorsum of her index finger with blister no other reeves noted she has pain she rates a 6 out of 10. Associated symptoms: Deny chest pain, fever(s), headache(s), nausea, neck pain or vomiting Related Data Home Medications ?Medication ?Instructions ?Recorded ?Confirmed omeprazole 40 mg capsule,delayed 40 mg PO DAILY PRN Acid Reflux 11/09/24 02/24/25 release Previous Rx's ?Medication ?Instructions ?Recorded albuterol sulfate 90 mcg/actuation 2 inh inhalation Q4H PRN shortness 01/07/25 aerosol inhaler of breath or wheezing #6.7 grams upadacitinib 15 mg tablet,extended 15 mg PO DAILY #30 tabs 01/14/25 release 24 hr (Rinvoq) fluconazole 150 mg tablet 150 mg PO Q3D 2 doses #2 tabs 02/24/25 nystatin 100,000 unit/mL oral 5 ml PO QID 10 days #200 mL 02/24/25 suspension naproxen 500 mg tablet (Naprosyn) 500 mg PO BID PRN pain #20 tabs 03/01/25 Allergies Allergy/AdvReac Type Severity Reaction Status Date / Time steroids AdvReac Intermediate ADR-Vomitin Uncoded 01/26/25 12:43 g Review of Systems Const: Denies: fever(s), chills, body aches or change in appetite ENMT: Denies: throat pain or dental pain Card: Denies: chest pain Resp: Denies: dyspnea GI: Denies: abdominal pain, nausea, vomiting or diarrhea Musc: Reports: extremity pain; Denies: neck pain or back pain Skin/Breast: Denies: rash Neuro: Denies: headache(s) PFSH ED PFSH: Medical History Screening for cervical cancer Anxiety Depression Chronic migraine Thyroid disease High risk medication use PAULETTE (juvenile idiopathic arthritis) Rheumatoid arthritis IBS (irritable bowel syndrome) Surgical History History of elbow surgery History of cholecystectomy Family History Father Hypertension Stroke Diabetes Other Arthritis CAD (coronary artery disease) Chronic kidney disease (CKD) Denies family history of Dementia Cancer Social History Smoking and tobacco/nicotine status: current every day tobacco/nicotine user cigarettes Packs smoked per day: 0.5 Years cigarettes smoked: 10 Second hand smoke exposure: No Alcohol intake: never Substance/Drug Use: never Adopted: No Caregiver/support person: No Lives independently: Yes Household members: children and other Details: father Marital status: Legally Physical Exam Const: COMMON NORMALS: no acute distress, patient oriented x3 and healthy appearing HENMT: COMMON NORMALS: normocephalic and atraumatic HEAD & SCALP: normocephalic and atraumatic Eye: COMMON NORMALS: conjunctivae normal CONJUNCTIVA: Yes conjunctivae normal Neck/C-Spine: COMMON NORMALS: full ROM and supple Chest: COMMONS NORMALS: normal inspection of the chest Resp: COMMON NORMALS: normal respiratory effort Cardio: COMMON NORMALS: regular rate RATE: regular rate Extremity: COMMON NORMALS: full ROM Neuro: COMMON NORMALS: patient oriented x3, moves all extremities and no focal motor deficits Psych: COMMON NORMALS: mental status grossly normal, Normal thought process present and cooperative THOUGHT PROCESS: Normal thought process present Skin: NARRATIVE SKIN EXAM: Superficial burn noted to dorsum of right index finger no full-thickness is not circumferential Course Vital Signs: Vital signs: Vital Signs Temperature 98.1 F 03/01/25 12:47 Pulse Rate 65 03/01/25 12:47 Respiratory Rate 16 03/01/25 12:47 Blood Pressure 107/67 03/01/25 12:47 Pulse Oximetry 98 03/01/25 12:47 Oxygen Delivery Me thod Room Air 03/01/25 12:47 MDM - Burn/Smoke Inhalation Medical Decision Making Patient presents here with burn to right index finger she is well-appearing here she stable for discharge follow-up PCP return if worsening. No radiology studies performed this visit Discharge Plan Discharge Patient Disposition: Home Clinical Impression: Burn Condition: Stable Prescriptions: New naproxen [Naprosyn] 500 mg tablet 500 mg PO BID PRN (Reason: pain) Qty: 20 0RF No Action Rinvoq 15 mg tablet extended release 24 hr 15 mg PO DAILY Qty: 30 5RF nystatin 100,000 unit/mL suspension 5 ml PO QID 10 Days Qty: 200 0RF Rx Instructions: swish and swallow fluconazole 150 mg tablet 150 mg PO Q3D Qty: 2 0RF Rx Instructions: may repeat second dose 72 hrs after first dose if symptoms persist albuterol sulfate 90 mcg/actuation HFA aerosol inhaler 2 inh inhalation Q4H PRN (Reason: shortness of breath or wheezing) Qty: 6.7 0RF omeprazole 40 mg Capsule,Delayed Release(Dr/Ec) 40 mg PO DAILY PRN (Reason: Acid Reflux) Discharge Orders: Discharge ED (Routine); Ordered 03/01/25 Ordered By: Janes Johnson Referrals: Oly Freeman, AMERICAN STUDIES PROFESSOR [Primary Care Provider, Family Practice] - 4-7 days Discharge Diet: Advance as tolerated Discharge Activity: Resume usual activity Patient Instructions: Superficial Burn (ED) Print Language: [place]inean Coding Level of Care Code ED Paint Mixer Hand for Latoya Gallegos
[2025-03-01] MEDS: HYDROcodone-acetaminophen 5-325 mg Tablet 1 TAB PO (13:18)
[2025-03-01] MEDS: neomycin-poly-bacitracin oint 0.9 gm Pkt 1 APPLIC TOPICAL (13:18)
[2025-03-01 13:45] VITALS: BP 130/95; PULSE 67; O2SAT 99
[2025-03-01 13:46] VITALS: BP 130/95; PULSE 67; O2SAT 97
== END 2025-03-01 13:48 | disposition home or self-care (01) ==
PROVIDERS: Emergency Provider Emergency Medicine
DX: T23.021A Burn of unspecified degree of single right finger (nail) except thumb, initial encounter (principal); F17.210 Nicotine dependence, cigarettes, uncomplicated; X12.XXXA Contact with other hot fluids, initial encounter
CPT/HCPCS: 99283; J9999

== ENCOUNTER → 2025-04-08 11:54 | Outpatient (BNVA) | payer MEDICAID, SELFPAY | PROVIDERS: Visit Provider Internal Medicine Rheumatology | DX: B37.0 Candidal stomatitis (principal); Z79.899 Other long term (current) drug therapy; M06.9 Rheumatoid arthritis, unspecified | CPT/HCPCS: 80076; 82306; 82565; 83036; 85025; 85651; 86140; 87806 ==

== ENCOUNTER → 2025-06-22 10:50 | Outpatient (BNVA) | payer MEDICAID, SELFPAY | DX: Z12.4 Encounter for screening for malignant neoplasm of cervix (principal); R32 Unspecified urinary incontinence | CPT/HCPCS: 81000; 87624 ==

== ENCOUNTER → 2025-07-22 08:36 | Outpatient (BNVA) | payer MEDICAID, SELFPAY | PROVIDERS: Visit Provider Student in an Organized Health Care Education/Training Program | DX: K12.1 Other forms of stomatitis (principal) | CPT/HCPCS: 87210; 87530; 99205 ==